=== PATIENT | female | born 1980 | race Caucasian/White ===

== ENCOUNTER 2020-12-19 15:09 | Outpatient (CLI) | payer OTHER, SELFPAY ==
--- NOTE | ~2020-12-19 | MM_ITS ---
EXAMINATION: MM screening augustus BI w parisa HISTORY: Screening mammogram TECHNIQUE: Craniocaudal and mediolateral oblique 3-D tomosynthesis images were obtained and synthetic 2-D images were generated. CAD analysis was submitted and interpreted. COMPARISON: No prior mammogram is available for comparison at this institution. BREAST PARENCHYMAL COMPOSITION: There are scattered areas of fibroglandular density. FINDINGS: There is no evidence of suspicious mass, calcification, or architectural distortion to sugg est malignancy in either breast. There has been no suspicious interval change. IMPRESSION: 1. No mammographic evidence of malignancy. 2. Recommend routine screening mammography in one year. BI-RADS Category 1: Negative Reviewed, dictated and finalized at location A. HEALTH LPN
== END 2020-12-19 15:10 | disposition home or self-care (01) ==
LOC: ANHIMG 15:19
PROVIDERS: Visit Provider Obstetrics & Gynecology
DX: Z12.31 Encounter for screening mammogram for malignant neoplasm of breast (principal)
CPT/HCPCS: 77063; 77067

== ENCOUNTER 2021-12-02 12:08 | Inpatient (IN) | payer OTHER, SELFPAY ==
[2021-12-02] VITALS (9 sets, daily range): BP systolic 112–149; BP diastolic 79–88; PULSE 110–140; RESP 18–32; TEMP 36.4–37.4; O2SAT 93–97
--- NOTE | ~2021-12-02 | CT_ITS ---
EXAMINATION: CTA chest PE protocol EXAM DATE: 12/02/2021 14:09 INDICATION: Elevated D-dimer. COVID positive. Dyspnea. TECHNIQUE: Spiral CTA of the chest (pulmonary arteries) was performed with 100 cc Omnipaque 350 intr avenous contrast injection. Images were acquired during the pulmonary arterial phase. Coronal maxi mum intensity projection 3D-reconstructions were created by the technologist on dedicated workstation . Axial, coronal and sagittal reformatted images were reviewed. The dose-length product (DLP) for t his examination was 973.05 mGy-cm. The exposure was tailored according to patient size (auto mA exp osure control), and iterative reconstruction (ASIR) was used as additional dose reduction technique. Correlation is made to chest x-ray same date. FINDINGS: Pulmonary arteries are well opacified and without intraluminal filling defects. No thora cic aortic dissection. Moderate amount of bilateral groundglass density airspace disease, appearance consistent with COVID pneumonia. There are no pleural or pericardial effusions. Tracheobronchial tree is patent. There is no mediastinal, hilar or axillary lymphadenopathy. There is no pneumotho rax. Heart normal in size. No evidence of coronary arterial calcification. There is hepatic stea tosis. Cholecystectomy clips. There is thoracic spondylosis without osteoblastic or osteolytic lesio ns identified. IMPRESSION: 1. Moderate amount of airspace disease consistent with COVID pneumonia. 2. No pulmonary emboli. 3. Hepatic steatosis. Reviewed, dictated and finalized at location A. TABLE ENGINEER
--- NOTE | ~2021-12-02 | XR_ITS ---
EXAMINATION: XR chest 1V portable EXAM DATE: 12/02/2021 12:50 INDICATION: COVID Dyspnea . TECHNIQUE: Portable AP frontal chest x-ray was obtained. There is no prior study for comparison. FINDINGS: Moderate amount of bilateral airspace disease, pneumonia. No pneumothorax or pleural effusi on. Cardiomediastinal silhouette is normal. There are no osseous abnormalities identified. IMPRESSION: Moderate amount of pneumonia. Reviewed, dictated and finalized at location A. AZZO MECHANIC
--- NOTE | 2021-12-02 12:12 | ED.SOB ---
HPI - SOB/Dyspnea General Chief Complaint: Shortness of Breath/Dyspnea Stated Complaint: amb Source: patient and RN notes reviewed Mode of arrival: ambulatory Limitations: no limitations History of Present Illness MD elicited complaint: shortness of breath and cough Context: recent illness ( diagnosed with COVID on 11/22) Timing: constant Severity: severe Related Data Home Medications Medication Instructions Recorded Confirmed cholecalciferol (vitamin D3) 25 mcg PO DAILY 12/02/21 12/02/21 hydrochlorothiazide 25 mg PO DAILY 12/02/21 12/02/21 metformin 500 mg PO DAILY 12/02/21 12/02/21 valsartan 160 mg PO DAILY 12/02/21 12/02/21 Allergies Allergy/AdvReac Type Severity Reaction Status Date / Time naproxen Allergy Anaphylactic Verified 12/02/21 16:53 Shock Review of Systems Review of Systems: All systems reviewed & are unremarkable except as noted in HPI and below PMFSH Past Medical History Medical History (Updated 12/02/21 @ 17:16 by Tanner Nuñez MD) Factor VIII deficiency Obesity Type 2 diabetes mellitus Surgical History Surgical History (Updated 12/02/21 @ 12:17 by Tanner Nuñez MD) Hx of cholecystectomy Previous back surgery Social History Social History Smoking status: Never smoker Gender identity (if verbalized by the patient): Female Sexual Orientation (if Verbalized by the Patient): Straight or Heterosexual Exam Const: General: no acute distress, alert and ill appearing acutely Nutritional Appearance: obese Orientation/consciousness: patient oriented x3 HENMT: Head: normal to inspection Ears: external ears normal Eyes: Conjunctivae: conjunctivae normal Pupils: Equal, round and reactive pupils present EOM: EOMs intact bilaterally Neck: Neck: normal visual inspection Resp: Effort & Inspection: normal respiratory effort and tachypneic Auscultation: clear to auscultation bilaterally Cardio: Rate: tachycardic Rhythm: regular rhythm GI: GI Palp: Yes Soft to palpation, No Tenderness to palpation present (GI) and No Guarding due to palpation present (GI) Auscultation: normal bowel sounds Back/Spine/Pelvis: Cervical Spine: cervical ROM normal Thoracic/Lumbar Spine: thoraco-lumbar ROM normal Skin: General skin exam: normal color Rashes: no rashes Neuro: General: patient oriented x3, moves all extremities, no meningeal signs and no focal motor deficits Speech: normal speech Gait exam (Neuro): Normal gait present Extrem: General: normal to inspection and no clubbing, cyanosis or edema Psych: Mental Status: mental status grossly normal Affect: normal affect Attitude: cooperative Thought content: Yes Normal thought content present Course Course Emergency Course: after review of lab work and patient's condition that she will need admission for COVID pneumonia. Risk factors include obesity and type 2 diabetes. She is having some hypoxia at rest in bed down to 88% and had improvement to 94% and also felt better when nasal cannula was added. She is given Decadron 10 mg IV in the emergency room and will be started on remdesivir. I will also give her some inhalers to use. She is at the end of her 10 day quarantine and I believe she qualifies for remdesivir due to her hypoxia and risk factors. Vital Signs Vital signs: Vital Signs Pulse Rate 140 H 12/02/21 12:18 Respiratory Rate 32 H 12/02/21 12:18 Blood Pressure 112/88 12/02/21 12:18 Pulse Oximetry 95 12/02/21 12:18 Temperature 36.4 C L 12/02/21 16:00 Pulse Rate 110 H 12/02/21 16:25 Respiratory Rate 18 12/02/21 16:25 Blood Pressure 147/82 H 12/02/21 16:25 Pulse Oximetry 97 12/02/21 16:25 MDM - SOB/Dyspnea Differential Diagnosis Differential diagnosis: Likely acute exacerbation of chronic obstructive airways disease, congestive heart failure, community acquired pneumonia, asthma with exacerbation and pulmonary embolism Lab Data Attestation: I reviewed the patient's lab results.
[2021-12-02] MEDS: LACTATED RINGERS 1,000 ML 999 ML IV CONT (12:33)
[2021-12-02 12:36] LABS: Basophils Absolute Auto 0.02 K/mm3 (0.00-0.10); Basophils Percent Auto 0.2 % (0.0-1.0); Hematocrit 45.3 % (35.0-49.0); Hemoglobin 15.4 g/dL (12.0-15.0); Immature Granulocyte Percent A 1.1 % (0.0-0.0); Lymphocytes Absolute Auto 1.79 K/mm3 (1.10-4.50); Lymphocytes Percent Auto 19.4 % (18.0-42.0); Mean Corpuscular Hemoglobin 31.1 pg (27.0-31.0); Mean Corpuscular Volume 91.5 fL (78.0-102.0); Mean Platelet Volume 9.5 fl (9.2-11.8); Monocytes Percent Auto 5.4 % (2.0-11.0); Neutrophils Absolute Auto 6.8 K/mm3 (1.7-7.2); Neutrophils Percent Auto 73.9 % (50.0-70.0); Platelet Count Result 245 K/mm3 (150-420); Red Blood Count 4.95 M/mm3 (4.20-5.40); Red Cell Distribution Width 11.9 % (11.6-14.4); White Blood Count 9.2 K/mm3 (4.8-10.8)
[2021-12-02 12:53] LABS: D Dimer 0.56 mg/L (0.19-0.50)
--- NOTE | 2021-12-02 12:54 | PC.NURSE ---
Lab called with d-dimer of 0.56 Dr. Nuñez notified.
[2021-12-02 12:56] LABS: Lactic Acid Reflex 2.1 mmol/L (0.4-2.0)
[2021-12-02 13:25] LABS: Alanine Aminotransferase 59 U/L (14-59); Albumin Level 2.9 g/dL (3.4-5.0); Alkaline Phosphatase 35 U/L (46-116); Anion Gap 11 mmol/L (8-16); Aspartate Amino Transferase 48 U/L (15-37); Bilirubin,Total 0.5 mg/dL (0.00-1.00); Blood Urea Nitrogen 17 mg/dL (7-18); Calcium 8.6 mg/dL (8.5-10.1); Carbon Dioxide 26 mmol/L (21-32); Chloride 96 mmol/L (98-108); Estimated CRCL calculation 88 ml/min; Estimated Glomerular Filt Rate 53; Glucose 210 mg/dL (70-99); Magnesium 1.4 mg/dL (1.8-2.4); Osmolality Calculated 283 mOsm/kg (285-295); Potassium 3.1 mmol/L (3.5-5.1); Sodium 133 mmol/L (136-145); Total Protein 7.5 g/dL (6.4-8.2)
[2021-12-02 13:32] LABS: Ferritin > 1000 ng/mL (8-252)
[2021-12-02 13:35] LABS: Serum Qual hCG Negative
[2021-12-02 13:36] LABS: SPREG INTERNAL CONTROL Positive
[2021-12-02] MEDS: ONDANSETRON INJ 4 MG/2 ML VIAL IV PUSH (14:28)
--- NOTE | 2021-12-02 15:18 | PC.NURSE ---
Per pt ok to speak to Mele () and provide an update. Mele given update and aware pt will likely be notified.
--- NOTE | 2021-12-02 15:28 | PC.NURSE ---
Floor and admitting notified of pt admission.
[2021-12-02 15:32] LABS: Reflex Lactic Acid Yes or No Add Lactic
--- NOTE | 2021-12-02 15:40 | PC.NURSE ---
Pt had accident. Helped pt get cleaned up and change clothes. Brought in commode. Pt able to transfer to commode on own.
[2021-12-02 15:47] LABS: Prothrombin Time 10.8 Seconds (9.50-12.10)
[2021-12-02] MEDS: POTASSIUM BICARBONATE 25 MEQ TABEF PO (16:15)
--- NOTE | 2021-12-02 16:19 | PC.NURSE ---
Phone report given to WALTER Smith
--- NOTE | 2021-12-02 17:48 | PC.NURSE ---
Pt admitted to room 211 from the ER. Dx: Covid pneumonia, Diarrhea, N/V. O2 on at 2L/NC. Pt is alert and oriented x3. 18G IV in RAC.
[2021-12-02] MEDS: MAGNESIUM SULF 2 GM/WATER 50ML 2 GM/50 ML BAG IVPB (18:20)
--- NOTE | 2021-12-02 18:52 | PC.NURSE ---
When nurse asked patient when she takes her Trulicity patient stated she stopped the medication 2 weeks ago due to abd pain. Pharmacy notified.
[2021-12-02] MEDS: REMDESIVIR 200 MG/NS 250 ML 200 MG/250 ML BAG 250 MG IVPB (21:37)
[2021-12-03] VITALS: BP 146/63; PULSE 84; RESP 20; TEMP 36.1; O2SAT 93
[2021-12-03 05:24] VITALS: O2SAT 92
[2021-12-03 05:51] LABS: Hematocrit 42.1 % (35.0-49.0); Hemoglobin 13.8 g/dL (12.0-15.0); Mean Corpuscular HGB Conc 32.8 g/dL (32.0-36.0); Mean Corpuscular Hemoglobin 30.5 pg (27.0-31.0); Mean Corpuscular Volume 92.9 fL (78.0-102.0); Mean Platelet Volume 9.2 fl (9.2-11.8); Platelet Count Result 236 K/mm3 (150-420); Red Blood Count 4.53 M/mm3 (4.20-5.40); Red Cell Distribution Width 11.8 % (11.6-14.4); White Blood Count 6.1 K/mm3 (4.8-10.8)
[2021-12-03 06:02] LABS: Prothrombin Time 10.3 Seconds (9.50-12.10)
[2021-12-03 06:21] LABS: Anion Gap 9 mmol/L (8-16); Blood Urea Nitrogen 12 mg/dL (7-18); Calcium 8.5 mg/dL (8.5-10.1); Carbon Dioxide 31 mmol/L (21-32); Chloride 100 mmol/L (98-108); Estimated CRCL calculation 99 ml/min; Estimated Glomerular Filt Rate > 60; Glucose 205 mg/dL (70-99); Magnesium 2.1 mg/dL (1.8-2.4); Osmolality Calculated 295 mOsm/kg (285-295); Potassium 3.4 mmol/L (3.5-5.1); Sodium 140 mmol/L (136-145)
[2021-12-03 06:24] LABS: Alanine Aminotransferase 46 U/L (14-59)
[2021-12-03 06:33] LABS: Lactic Acid 1.6 mmol/L (0.4-2.0)
[2021-12-03 06:47] LABS: Band Neutrophils Percent 1 % (0-6); Lymphocytes Absolute Manual 1.15 K/mm3 (1.1-4.5); Lymphocytes Percent Manual 19 % (18-44); Monocytes Absolute Manual 0.48 K/mm3 (0.1-0.90); Monocytes Percent Manual 8 % (3-9); Neutrophils Absolute Manual 4.45 K/mm3 (1.7-7.2); Neutrophils Percent Manual 72 % (46-73); Platelet Estimate Adequate (Adequate); Total Cells Counted 100
[2021-12-03 08:00] VITALS: BP 143/97; PULSE 103; RESP 20; TEMP 36.8
[2021-12-03] MEDS: DEXAMETHASONE SOD PHOS INJ 4 MG/ML VIAL 6 MG IV PUSH (08:40)
[2021-12-03] MEDS: VALSARTAN 80 MG TABLET 160 MG PO (08:41)
[2021-12-03] MEDS: metFORMIN HCL 500 MG TABLET PO (08:41)
[2021-12-03] MEDS: hydroCHLOROthiazide 25 MG TABLET PO (08:41)
[2021-12-03] MEDS: CHOLECALCIFEROL 1,000 UNITS TABLET 1000 UNITS PO ×2 (08:41→08:46)
[2021-12-03] MEDS: UMECLIDINIUM BROMIDE 62.5 MCG ELLIPTA 1 PUFF INHALATION (08:42)
--- NOTE | 2021-12-03 11:53 | PM.IMHP ---
H&P: HPI History of Present Illness Date/Time: 12/03/21 11:53 this is a 41-year-old female who presented to emergency department with complaints of shortness of breath and fatigue. Patient has a past medical history factor VIII deficiency obesity and type 2 diabetes. According to patient she tested for Covid November 22, 2021 patient notes that she did not have any symptoms at that time. Patient notes that she started to experience symptoms such as shortness of breath, fatigue and chest congestion yesterday patient notes that she was so weak that her had to assist her with her ADLs, she was not able to bathe herself. Patient notes that with activity he becomes short of breath. Patient did not take anything at home to relieve her symptoms. WBCs 9.2 hemoglobin 15.4, hematocrit 45.3, platelets 245, D-dimer 0.56, sodium 133, potassium 3.1, BUN 17, creatinine 1.12, glucose 210, lactic acid 2.1, magnesium 1.4, AST 48, ALT 59 chest x-ray moderate amount of CTA negative for pulmonary emboli indicates COVID pneumonia. The patient denies CP, palpitation, extremity numbness, lightheadedness, dizziness, constipation, diarrhea, chills, or fever. Patient continues to experience shortness of breath, fatigue with chest congestion and a nonproductive cough. Time spent 60 minutes Patient can discharge possibly tomorrow <DONIS Carpio - Last Filed: 12/03/21 12:29> Chief Complaint: Shortness of breath and fatigue <DONIS Carpio - Last Filed: 12/03/21 12:29> Review of Systems Review of Systems: A 14 organ system Review of Systems was performed and pertinent positives included in the HPI, otherwise remaining ROS is negative. <DONIS Carpio - Last Filed: 12/03/21 12:29> [facility] Past Medical History Medical History: Medical History (Updated 12/03/21 @ 12:21 by DONIS Carpio) Factor VIII deficiency Obesity Type 2 diabetes mellitus <DONIS Carpio - Last Filed: 12/03/21 12:29> Surgical History Surgical History: Surgical History (Updated 12/02/21 @ 12:17 by Tanner Nuñez MD) Hx of cholecystectomy Previous back surgery <DONIS Carpio - Last Filed: 12/03/21 12:29> Social History Social History: Social History Smoking status: Never smoker Gender identity (if verbalized by the patient): Female Sexual Orientation (if Verbalized by the Patient): Straight or Heterosexual <DONIS Carpio - Last Filed: 12/03/21 12:29> Meds Home Medications and Allergies Home medications: Home Medications Medication Instructions Recorded Confirmed Type cholecalciferol (vitamin D3) 25 mcg PO DAILY 12/02/21 12/02/21 History hydrochlorothiazide 25 mg PO DAILY 12/02/21 12/02/21 History metformin 500 mg PO DAILY 12/02/21 12/02/21 History valsartan 160 mg PO DAILY 12/02/21 12/02/21 History <DONIS Carpio - Last Filed: 12/03/21 12:29> Allergies/Adverse reactions: Allergies Allergy/AdvReac Type Severity Reaction Status Date / Time naproxen Allergy Anaphylactic Verified 12/02/21 16:53 Shock <DONIS Carpio - Last Filed: 12/03/21 12:29> Vital Signs Vital Signs - 24 hr 12/02/21 12:18 12/02/21 12:35 12/02/21 12:41 Temperature 99.4 F Pulse Rate 140 H 140 H 126 H Respiratory Rate 32 H 30 H Blood Pressure 112/88 112/80 Pulse Oximetry 95 93 12/02/21 14:35 12/02/21 15:10 12/02/21 15:30 Temperature Pulse Rate 117 H Respiratory Rate 24 H Blood Pressure 149/88 H Pulse Oximetry 96 97 93 12/02/21 15:32 12/02/21 16:00 12/02/21 16:25 Temperature 97.5 F L Pulse Rate 118 H 118 H 110 H Respiratory Rate 18 18 18 Blood Pressure 133/79 147/82 H Pulse Oximetry 96 96 97 12/03/21 00:00 12/03/21 08:00 Temperature 96.9 F L 98.3 F Pulse Rate 84 103 H Respiratory Rate 20 20 Blood Pressure 146/63 H 143/97 H Pulse Oximetry 93 <DONIS Carpio - Last Filed: 12/03/21 12:29> Exam
[2021-12-03] MEDS: POTASSIUM CHLORIDE 20 MEQ TABLET 40 MEQ PO (12:19)
[2021-12-03] MEDS: BENZONATATE 100 MG CAPSULE 200 MG PO ×2 (12:22→16:39)
[2021-12-03] MEDS: AZITHROMYCIN 250 MG TABLET 500 MG PO (12:22)
--- NOTE | 2021-12-03 13:51 | PC.NURSE ---
Patient cooperative with care. New order obtained for AC/HS blood glucose monitoring. SPO2 remains in low 90s at 2 L via n/c. Resting in bed.
[2021-12-03 16:00] VITALS: BP 156/83; PULSE 112; RESP 20; TEMP 36.4; O2SAT 93
[2021-12-03 16:21] LABS: Glucose Point of Care 203 mg/dl (65-105)
[2021-12-03] MEDS: guaiFENesin 12 HR 600 MG TABCR 1200 MG PO (20:11)
[2021-12-03 21:33] LABS: Glucose Point of Care 245 mg/dl (65-105)
[2021-12-03] MEDS: REMDESIVIR 100 MG/NS 250 ML 100 MG/250 ML BAG 250 MG IVPB (22:13)
[2021-12-03] MEDS: ACETAMINOPHEN 325 MG TABLET 650 MG PO (22:30)
[2021-12-03] MEDS: traZODone HCL 50 MG TABLET PO (22:30)
[2021-12-04] VITALS: BP 126/74; PULSE 78; RESP 16; TEMP 36.3; O2SAT 92
[2021-12-04 05:14] VITALS: O2SAT 92
[2021-12-04 05:26] LABS: Hematocrit 39.9 % (35.0-49.0); Mean Corpuscular HGB Conc 32.6 g/dL (32.0-36.0); Mean Corpuscular Hemoglobin 30.6 pg (27.0-31.0); Mean Corpuscular Volume 93.9 fL (78.0-102.0); Mean Platelet Volume 9.3 fl (9.2-11.8); Platelet Count Result 243 K/mm3 (150-420); Red Blood Count 4.25 M/mm3 (4.20-5.40); Red Cell Distribution Width 11.8 % (11.6-14.4); White Blood Count 9.3 K/mm3 (4.8-10.8)
[2021-12-04 05:41] LABS: Prothrombin Time 10.5 Seconds (9.50-12.10)
[2021-12-04 05:53] LABS: Alanine Aminotransferase 32 U/L (14-59); Albumin Level 2.3 g/dL (3.4-5.0); Alkaline Phosphatase 30 U/L (46-116); Anion Gap 12 mmol/L (8-16); Aspartate Amino Transferase 40 U/L (15-37); Bilirubin,Total 0.3 mg/dL (0.00-1.00); Blood Urea Nitrogen 16 mg/dL (7-18); Calcium 8.4 mg/dL (8.5-10.1); Carbon Dioxide 27 mmol/L (21-32); Chloride 103 mmol/L (98-108); Estimated CRCL calculation 116 ml/min; Estimated Glomerular Filt Rate > 60; Glucose 177 mg/dL (70-99); Osmolality Calculated 299 mOsm/kg (285-295); Potassium 3.7 mmol/L (3.5-5.1); Sodium 142 mmol/L (136-145); Total Protein 6.2 g/dL (6.4-8.2)
[2021-12-04 07:25] VITALS: BP 134/61; PULSE 77; RESP 18; TEMP 36.3; O2SAT 93
--- NOTE | 2021-12-04 07:25 | PC.NURSE ---
AM assessment complete, remains on room air and O2 saturation of 93% noted, occasional harsh cough productive at times noted, call light in reach and personal items in reach of patient for safety, denies needs
[2021-12-04] MEDS: UMECLIDINIUM BROMIDE 62.5 MCG ELLIPTA 1 PUFF INHALATION (08:11)
[2021-12-04] MEDS: VALSARTAN 80 MG TABLET 160 MG PO (08:11)
[2021-12-04] MEDS: guaiFENesin 12 HR 600 MG TABCR 1200 MG PO (08:12)
[2021-12-04] MEDS: BENZONATATE 100 MG CAPSULE 200 MG PO ×2 (08:12→13:11)
[2021-12-04] MEDS: CHOLECALCIFEROL 1,000 UNITS TABLET 1000 UNITS PO (08:12)
[2021-12-04] MEDS: AZITHROMYCIN 250 MG TABLET 500 MG PO (08:12)
[2021-12-04] MEDS: hydroCHLOROthiazide 25 MG TABLET PO (08:13)
[2021-12-04] MEDS: DEXAMETHASONE SOD PHOS INJ 4 MG/ML VIAL 6 MG IV PUSH (08:13)
[2021-12-04] MEDS: metFORMIN HCL 500 MG TABLET PO (08:13)
--- NOTE | 2021-12-04 08:27 | PC.NURSE ---
AM meds given, no distress noted, harsh loose cough noted,
[2021-12-04 11:54] LABS: Glucose Point of Care 209 mg/dl (65-105)
--- NOTE | 2021-12-04 13:29 | P.DS_ITS ---
DS: Admitting Diagnosis Discharge Date 12/04/2021 <Bk Ewing LISSY Cartagena - Last Filed: 12/04/21 13:53> Admitting Diagnosis COVID, Pneumonia, Hypomagnesemia <Bk WebsterLISSY castro - Last Filed: 12/04/21 13:53> DS: Discharge Diagnosis Discharge Diagnosis (1) Pneumonia due to COVID-19 virus: Code(s): U07.1 - COVID-19; J12.82 - Pneumonia due to coronavirus disease 2019 <Bk Ewing LISSY Cartagena - Last Filed: 12/04/21 13:53> Status: Acute <Bk Ewing LISSY Cartagena - Last Filed: 12/04/21 13:53> Assessment and Plan: * CTA indicates COVID pneumonia * Started Azithromycin * Lactic acid2.1>1.6 * Blood culture pending * WBCs 9.2>6.1. * Patient receiving dexamethasone and remdesivir day 3 * Continue inhalers with Tessalon Perles guaifenesin 12/04/2021 Pt can take Inhalers home and continue same regimen, Pt has not complained of much coughing. states her breathing is good. She has been off supplemental oxygen throughout the day. 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 <Bk WellingtonLISSY Gordon - Last Filed: 12/04/21 13:53> Status: Inactive <Bk WellingtonLISSY Gordon - Last Filed: 12/04/21 13:53> Assessment and Plan: * Avoid anticoagulants <Bk WellingtonLISSY Gordon - Last Filed: 12/04/21 13:53> (4) Type 2 diabetes mellitus: Code(s): E11.9 - Type 2 diabetes mellitus without complications <Bk Cartagena APN-C - Last Filed: 12/04/21 13:53> Status: Inactive <Bk Cartagena APN-C - Last Filed: 12/04/21 13:53> Assessment and Plan: * Blood sugar less than 300 * Continue Metformin with hypoglycemic protocol sliding scale in Accu-Cheks * Continue diabetic diet * Will closely monitor blood sugar due to use of steroids 12/04/2021 Will continue Decadron and advise Pt to pay close attention to her glucose levels and diet. <Bk Cartagena APN-C - Last Filed: 12/04/21 13:53> (5) Elevated d-dimer: Code(s): R79.89 - Other specified abnormal findings of blood chemistry <Bk Cartagena APN-C - Last Filed: 12/04/21 13:53> Status: Acute <Bk Cartagena APN-C - Last Filed: 12/04/21 13:53> Assessment and Plan: * D-dimer0.54 * CTA negative for pulmonary emboli <Bk Cartagena APN-C - Last Filed: 12/04/21 13:53> (6) SAMMY (acute kidney injury): Code(s): N17.9 - Acute kidney failure, unspecified <SAAD NealN-C - Last Filed: 12/04/21 13:53> Status: Acute <Bk Cartagena APN-C - Last Filed: 12/04/21 13:53> Assessment and Plan: * Resolved * Secondary to viral * Creatinine1.12>0.99 12/04/2021 Resolved <SAAD NealN-C - Last Filed: 12/04/21 13:53> (7) Electrolyte imbalance: Code(s): E87.8 - Other disorders of electrolyte and fluid balance, not elsewhere classified <Bk Cartagena TOWN CLERK-C - Last Filed: 12/04/21 13:53> Status: Acute <Bk Cartagena TOWN CLERK-C - Last Filed: 12/04/21 13:53> Assessment and Plan: * Magnesium 1.4>2.1, potassium3.1>3.4 * Continue supplements 12/04/2021 improved, Pt to follow up with PCP <LISSY Neal - Last Filed: 12/04/21 1
--- NOTE | 2021-12-04 13:29 | PM.DS ---
DS: Admitting Diagnosis Discharge Date 12/04/2021 <Bk CartagenaLISSY - Last Filed: 12/04/21 13:53> Admitting Diagnosis COVID, Pneumonia, Hypomagnesemia <Bk CartagenaLISSY - Last Filed: 12/04/21 13:53> DS: Discharge Diagnosis Discharge Diagnosis (1) Pneumonia due to COVID-19 virus: Code(s): U07.1 - COVID-19; J12.82 - Pneumonia due to coronavirus disease 2019 <Bk WebsterLISSY castro - Last Filed: 12/04/21 13:53> Status: Acute <Bk WebsterLISSY castro - Last Filed: 12/04/21 13:53> Assessment and Plan: CTA indicates COVID pneumonia Started Azithromycin Lactic acid2.1>1.6 Blood culture pending WBCs 9.2>6.1. Patient receiving dexamethasone and remdesivir day 3 Continue inhalers with Tessalon Perles guaifenesin 12/04/2021 Pt can take Inhalers home and continue same regimen, Pt has not complained of much coughing. states her breathing is good. She has been off supplemental oxygen throughout the day. 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 <Bk Ewing LISSY Cartagena - Last Filed: 12/04/21 13:53> Status: Inactive <Bk Ewing LISSY Cartagena - Last Filed: 12/04/21 13:53> Assessment and Plan: Avoid anticoagulants <Bk ParisLISSY Gordon - Last Filed: 12/04/21 13:53> (4) Type 2 diabetes mellitus: Code(s): E11.9 - Type 2 diabetes mellitus without complications <Bk Cartagena APN-C - Last Filed: 12/04/21 13:53> Status: Inactive <Bk Cartagnea APN-C - Last Filed: 12/04/21 13:53> Assessment and Plan: Blood sugar less than 300 Continue Metformin with hypoglycemic protocol sliding scale in Accu-Cheks Continue diabetic diet Will closely monitor blood sugar due to use of steroids 12/04/2021 Will continue Decadron and advise Pt to pay close attention to her glucose levels and diet. <Bk Cartagena APN-C - Last Filed: 12/04/21 13:53> (5) Elevated d-dimer: Code(s): R79.89 - Other specified abnormal findings of blood chemistry <Bk Cartagena APN-C - Last Filed: 12/04/21 13:53> Status: Acute <Bk Cartagena APN-C - Last Filed: 12/04/21 13:53> Assessment and Plan: D-dimer0.54 CTA negative for pulmonary emboli <Bk Cartagena APN-C - Last Filed: 12/04/21 13:53> (6) SAMMY (acute kidney injury): Code(s): N17.9 - Acute kidney failure, unspecified <Bk Cartagena APN-C - Last Filed: 12/04/21 13:53> Status: Acute <Bk Cartagena APN-C - Last Filed: 12/04/21 13:53> Assessment and Plan: Resolved Secondary to viral Creatinine1.12>0.99 12/04/2021 Resolved <SAAD NealN-C - Last Filed: 12/04/21 13:53> (7) Electrolyte imbalance: Code(s): E87.8 - Other disorders of electrolyte and fluid balance, not elsewhere classified <SAAD NealN-C - Last Filed: 12/04/21 13:53> Status: Acute <Bk Cartagena APN-C - Last Filed: 12/04/21 13:53> Assessment and Plan: Magnesium 1.4>2.1, potassium3.1>3.4 Continue supplements 12/04/2021 improved, Pt to follow up with PCP <LISSY Neal - Last Filed: 12/04/21 13:53> DS: Summary Hospital Course Hospital Course: Pt has been without increased oxygen demand throughout the day. He breathing is improved. She is able to ambulate without assistance or requiring supplemental oxygen. <LISSY Neal - Last Filed: 12/04/21 13:53> Time Spent with Patient Time attestation: Total time spent providing and/or coord
[2021-12-04 15:30] VITALS: RESP 16; O2SAT 92
--- NOTE | 2021-12-04 16:20 | PC.NURSE ---
Discharged to home via wheel chair with personal belongings, reviewed dc instructions and no questons voiced, reviewed covid diagnosis and isolation status
== END 2021-12-04 16:20 | disposition home or self-care (01) | DRG 177 ==
LOC: CHSED 12:18 → CHS2ND 15:38
PROVIDERS: Nurse Practitioner; Admitting Provider Emergency Medicine; Emergency Provider Emergency Medicine; PCP Nurse Practitioner; Visit Provider Emergency Medicine
DX: U07.1 COVID-19 (principal); J12.82 Pneumonia due to coronavirus disease 2019; D66 Hereditary factor VIII deficiency; N17.9 Acute kidney failure, unspecified; E11.9 Type 2 diabetes mellitus without complications; E87.8 Other disorders of electrolyte and fluid balance, not elsewhere classified; R79.89 Other specified abnormal findings of blood chemistry
CPT/HCPCS: 36415; 71045; 71275; 80048; 80053; 82728; 82948; 83605; 83735; 84460; 84703; 85025; 85027; 85380; 85610; 87040; 96361; 96374; 96375; 99285; A9270; J1100; J1815; J2405; J3475; J7120; Q9967

== ENCOUNTER → 2022-09-17 10:41 | Outpatient (CLI) | payer OTHER, SELFPAY ==
--- NOTE | ~2022-09-17 | US_ITS ---
EXAMINATION: US abdomen limited DATE: 09/17/2022 10:59 INDICATION: ELEV LIVER ENZYMES TECHNIQUE: Multiple grayscale and Doppler ultrasound images of limited portions of the abdomen were o btained. COMPARISON: Ultrasound gallbladder 01/09/2014. CTPA 12/02/2021. FINDINGS: The visualized portions of the pancreas are normal. The liver is grossly normal in size and difficult to penetrate, with increased echogenicity and normal echotexture. No surface nodularity. N ormal hepatopetal flow in the main portal vein. Cholecystectomy. The common bile duct measures 6 mm. IMPRESSION: Echogenic liver, most commonly due to steatosis but also can be seen with hepatitis and fibrosis. Cho lecystectomy. Reviewed, dictated and finalized at location K. IMPRESSION: Echogenic liver, most commonly due to steatosis but also can be seen with hepat itis and fibrosis. Cholecystectomy.
== END ==
PROVIDERS: PCP Nurse Practitioner; Visit Provider Nurse Practitioner
DX: R79.89 Other specified abnormal findings of blood chemistry (principal); R74.8 Abnormal levels of other serum enzymes; Z90.49 Acquired absence of other specified parts of digestive tract
CPT/HCPCS: 76705

== ENCOUNTER → 2022-12-14 08:17 | Outpatient (CLI) | payer OTHER, SELFPAY ==
--- NOTE | ~2022-12-14 | US_ITS ---
US pelvic complete w TV DATE: 12/14/2022 09:11 INDICATION: Pelvic and perineal pain TECHNIQUE: Real-time imaging via transabdominal and transvaginal approaches COMPARISON: None FINDINGS: Uterus measures approximately 8.3 centers height, 4.2 cm AP dimension with 11 mm AP dimensi on of endometrial complex. An IUD is present. Right ovary measures 4.9 x 3.5 x 4.2 cm with a 2.8 x 2.4 cm cyst. There is vascular flow to the right ovary. The left ovary is not visualized. IMPRESSION: Left ovary not visualized IUD within the uterus 2.8 cm right ovarian cyst Reviewed, dictated and finalized at Location A. Reviewed, dictated and finalized at location A. RINTENDENT BUILDING
== END ==
PROVIDERS: PCP Nurse Practitioner; Visit Provider Obstetrics & Gynecology
DX: R10.2 Pelvic and perineal pain (principal); Z97.5 Presence of (intrauterine) contraceptive device; N83.201 Unspecified ovarian cyst, right side
CPT/HCPCS: 76830; 76856

== ENCOUNTER 2023-03-04 09:17 | Outpatient (RCR) | payer OTHER, SELFPAY ==
[2023-03-04 09:33] VITALS: BMI 46.9; BMI 47.0
== END 2023-05-15 14:56 | disposition home or self-care (01) ==
LOC: ANHDMC 09:17
PROVIDERS: PCP Nurse Practitioner; Visit Provider Nurse Practitioner
DX: E11.65 Type 2 diabetes mellitus with hyperglycemia (principal); E66.01 Morbid (severe) obesity due to excess calories; Z68.42 Body mass index [BMI] 45.0-49.9, adult; Z71.3 Dietary counseling and surveillance
CPT/HCPCS: 97802

== ENCOUNTER 2023-04-21 09:48 | Outpatient (CLI) | payer OTHER, SELFPAY ==
--- NOTE | ~2023-04-21 | MM_ITS ---
EXAMINATION: MM screening augustus BI w parisa HISTORY: Screening mammogram TECHNIQUE: Craniocaudal and mediolateral oblique 3-D tomosynthesis images were obtained and synthetic 2-D images were generated. CAD analysis was submitted and interpreted. COMPARISON: 12/19/2020 BREAST PARENCHYMAL COMPOSITION: The breasts are almost entirely fatty. FINDINGS: No suspicious mass, calcification, or architectural distortion are identified in either cayden ast to suggest malignancy. There has been no suspicious interval change. IMPRESSION: 1. No mammographic evidence of malignancy. 2. Recommend routine screening mammography in one year. BI-RADS Category 1: Negative Reviewed, dictated and finalized at location A.
== END 2023-04-21 09:49 | disposition home or self-care (01) ==
LOC: ANHIMG 09:49
PROVIDERS: PCP Nurse Practitioner; Visit Provider Obstetrics & Gynecology
DX: Z12.31 Encounter for screening mammogram for malignant neoplasm of breast (principal)
CPT/HCPCS: 77063; 77067